=== PATIENT | male | born 1965 | race Caucasian/White ===

== ENCOUNTER 2023-11-28 10:41 | Emergency (ER) | payer OTHER, SELFPAY ==
--- NOTE | 2023-11-28 10:42 | ED.MUSCINJ ---
HPI-Injury
<Stella Scherer PA-C - Last Filed: 11/28/23 10:46>
General
Chief Complaint: Musculo-Skeletal Complaint
Time Seen by Provider: 11/28/23 11:14
<Yulissa Hansen PA-C - Last Filed: 11/30/23 01:30>
General
Source: patient
Exam Limitations: none
Nursing documentation reviewed up to this point in time: agreed with
History of Present Illness-Injury
Is this injury a work related problem?: No
Is pt an associate of [facility]?: No
Initial Injury comments:
Patient is a 58 year old male presenting with right hip pain for 3 days. Patient states that he was moving heavy objects on Monday at his home in [place] and believes that is when injury may have occurred. Patient states that on Monday he noticed
sharp pain in his right lower back/hip which radiates down his right leg into his right foot. Pain is definitely worse with certain movements. Patient was seen in an urgent care on Monday where he was prescribed a course of steroids and Flexeril.
He has been taking ibuprofen and Flexeril at home. He states Flexeril does not seem to be helping with his pain although does help him sleep at night.
Patient denies any fever, chills, numbness/tingling in lower extremities, bowel/bladder incontinence, saddle paresthesia. Patient denies any urinary symptoms.
ED Provider Triage
<Stella Scherer PA-C - Last Filed: 11/28/23 10:46>
-
Patient seen by provider in Triage?: Seen in Triage
Attestation: A medical screening examination has been initiated by a qualified medical provider. Based on the assessment performed at this time, it has been determined that an emergent medical condition may exist and the patient has been informed
that further medical evaluation and possible additional diagnostic testing may be needed.
HPI: 58yoM here with R hip pain x 2 days. Moved heavy objects two days prior symptoms starting. Radiates into foot. Sees a chiropractor regularly. Denies back pain currently.
GENERAL: Alert , in no apparent distress
EYE: No visual abnormalities.
NECK: Trachea midline
ENT: No visible abnormalities.
LUNGS: No acute respiratory distress
NEUROLOGICAL: Alert and oriented
SKIN: Skin intact. No visible changes.
MUSCULOSKELETAL: Moving extremities normally
PSYCH: Normal and appropriate interaction.
This is a medical evaluation conducted in person to initiate diagnostic evaluation and provide initial therapeutics. Please see further documentation by the treating clinician.
R hip x-rays ordered.
Past History
<Stella Scherer PA-C - Last Filed: 11/28/23 10:46>
Past History
ED Past Medical History: Other (Kidney stone)
ED Past Surgical History: Orthopedic
Social History
Tobacco: Non-smoker
Living: with family
Employment: Employed
Review of Systems
<Yulissa Hansen PA-C - Last Filed: 11/30/23 01:30>
Review of Systems
Allergies reviewed?: Yes
All Other Systems: ROS reviewed and negative except as documented in HPI and ROS
Phy Exam
<Yulissa Hansen PA-C - Last Filed: 11/30/23 01:30>
Physical Exam
Physical Exam:
Vitals: Mildly hypertensive. Afebrile
General: Patient is well appearing, no acute distress
Skin: Warm and dry, no rashes or lesions
Head: Normocephalic, atraumatic
Throat: Protecting airway
Neck: Normal ROM, no cervical spine tenderness
Cardiac: Regular rate
Pulm: No apparent respiratory distress
Abdomen: Soft and nontender. Nondistended. No CVA tenderness
Extremities: Positive right straight leg raise. Patient has no reproducible tenderness of right lower extremity. No obvious deformity or bony tenderness of right lower extremity. No pain with range of motion of right ankle, right knee or right hip.
Right lower extremity neurovascularly intact.
Neuro: Grossly intact. Strength 5 out of 5 in upper and lower extremities. Sensation fully well.
Psychiatric: Normal affect.
Injury Course
<Stella Scherer PA-C - Last Filed: 11/28/23 10:46>
Orders/Labs/Results
Orders:
Orders
11/28/23 10:45
Hip, Right 2-3 Views [CR Hip - RT w/wo Pel 2-3 Vw*] Urgent
Comment:
Reason For Exam: Pain
Include a pelvis x-ray?: Yes
11/28/23 12:22
Ketorolac [Toradol] 15 mg IM NOW STA
Lidocaine [Lidocaine 4% Patch] 1 patch TOPICAL NOW STA
Apply Lidocaine patch(s) to:: right lower back/hip
<Yulissa Hansen PA-C - Last Filed: 11/30/23 01:30>
Orders/Labs/Results
Orders:
Orders
11/28/23 10:45
Hip, Right 2-3 Views [CR Hip - RT w/wo Pel 2-3 Vw*] Urgent
Comment:
Reason For Exam: Pain
Include a pelvis x-ray?: Yes
11/28/23 12:22
Ketorolac [Toradol] 15 mg IM NOW STA
Lidocaine [Lidocaine 4% Patch] 1 patch TOPICAL NOW STA
Apply Lidocaine patch(s) to:: right lower back/hip
<Yulissa Hansen PA-C - Last Filed: 11/30/23 01:30>
MDM/Problems Addressed
Differential Diagnosis Includes:
Not limited to: Muscle strain, muscle spasm, nerve impingement, sciatica, IT band syndrome, hip arthritis, doubt hip fracture or dislocation
MDM/Problems Addressed:
Patient is a 58-year-old male with history as above presenting with right lower back pain/hip pain radiating to right foot. History obtained from patient. Patient is nontoxic, stable. Ambulatory with painful gait. Exam as above.
Independently reviewed imaging. No acute fracture or dislocation of right hip.
Differential diagnosis considered. Overall presentation is consistent with low risk back pain. Low suspicion for cauda equina syndrome, cord compression, epidural abscess, osteomyelitis, pyelonephritis, AAA, dissection, or other serious cause of
back pain. Symptoms and exam consistent with likely nerve impingement/sciatica. No infectious symptoms to suggest infectious etiology.
Patient was treated with pain medications with some improvement in symptoms. Patient is stable for outpatient management with pain control.
Discharged with instructions to obtain outpatient follow up of symptoms with strict return precautions if patient develops new or worsening symptoms. Case discussed with attending physician.
Chronic conditions affecting care:
N/A
Acute Exacerbation and/or Progression of Chronic Illness:
N/A
<Yulissa Hansen PA-C - Last Filed: 11/30/23 01:30>
*Radiology
Radiology exam reviewed: preliminary read by ED provider and radiology read reviewed
*Pulse Oximetry
Patient hypoxic: no
*EKG
Interpreted by ED Provider?: NA
*Hotel Office Manager Interpretation
Rate: Hotel Office Manager- N/A
*Critical Care Note
Total Time (30-74mins, 75-104mins- exclusive of procedures): Not Applicable
ED Attending Note
<Stella Scherer PA-C - Last Filed: 11/28/23 10:46>
-
Portions of this chart may have been created with voice recognition software.� Occasional wrong word or��sound alike� substitutions may have occurred due to the inherent limitations of voice recognition software.
Discharge Plan
Departure
Patient Disposition: Home (Routine Discharge)
Date of Disposition: 11/28/23
Time of Disposition: 13:23
Patient with high blood pressure during this ER visit?: Yes
Condition: Good
Covid-19: Not Applicable
Discharge Problem:
Right low back pain, Sciatica of right side
Instructions: Sciatica (DC), Radiculopathy of the neck and back (including sciatica), BLOOD PRESSURE
Prescriptions:
New
tramadol 50 mg tablet
50 mg PO Q8H PRN (Reason: Pain) Qty: 10 0RF
Referrals:
Don Briones DO [Family Provider] - Follow up in 2-3 days
Activity Restrictions/Additional Instructions:
RETURN TO THE EMERGENCY DEPARTMENT WITH ANY FEVERS, NUMBNESS/TINGLING IN LOWER LEGS, WEAKNESS IN LOWER LEGS, BOWEL/BLADDER INCONTINENCE, NUMBNESS IN GROIN, URINARY DYSFUNCTION, WORSENING IN CURRENT SYMPTOMS, OR ANY OTHER CONCERNS
-As discussed�your x-ray of your hip showed no acute fracture. I suspect your symptoms are related to a sciatic nerve impingement.
-You should complete steroid course as prescribed by urgent care. Take 600 mg of ibuprofen every 6-8 hours as needed for pain. You can take Tylenol in addition as needed. For severe pain�you can take tramadol. This may cause drowsiness you
should not take prior to driving. You should not take tramadol in addition to cyclobenzaprine. You can apply topical lidocaine patch to affected area as needed.
-Apply warm compresses as needed. Take it easy over the next few days.
-Follow-up with your primary care few days to ensure symptoms are improving/for further evaluation. If symptoms persist/worsen you may require further imaging
Monitor your symptoms closely return to the emergency department any acute worsening/new symptoms or any signs of infection
Interventions
Interventions:
*Risk Screen - Suicide Last Done: 11/28/23 10:43
*General Assessment Last Done: 11/28/23 10:43
*Neglect/Abuse Screening Last Done: 11/28/23 10:43
*Nursing Disposition Last Done: 11/28/23 13:52
ED-Musculoskeletal Assessment Last Done: 11/28/23 12:03
Discharge Date and Time
Discharge Date/Time: 11/28/23 13:53
Print Language: ARGENTINE
[2023-11-28 10:43] VITALS: BP 162/87
[2023-11-28] MEDS: TORADOL 15 MG IM (12:28)
[2023-11-28] MEDS: LIDOCAINE 4% PATCH 1 PATCH TOPICAL (12:28)
== END 2023-11-28 13:53 | disposition home or self-care (01) ==
LOC: EMR 10:41
PROVIDERS: EMERGENCY PHYSICIAN Emergency Medicine; FAMILY PHYSICIAN Family Medicine
DX: M54.41 Lumbago with sciatica, right side (principal)
CPT/HCPCS: 96372; 99284; 73502

== ENCOUNTER 2023-12-04 07:38 | Inpatient (IN) | payer OTHER, SELFPAY ==
[2023-12-02 18:56] VITALS: BP 173/99
--- NOTE | 2023-12-02 20:24 | ED.GENMED ---
History of Present Illness
<Colby Staples MD, Resident - Last Filed: 12/02/23 23:50>
General
Chief Complaint: Musculo-Skeletal Complaint
Source: patient, records and family
Time Seen by Provider: 12/02/23 19:47
History of Present Illness
History of Present Illness:
Jasen Flores, 58-year-old male, has had progressive right-sided low back pain for the past week. He was building his house in [place] on 11-24-23 when he started noticing discomfort in his right back. Developed a sharp pain in his right back which
radiated down towards his foot a couple of days later. He went to the urgent care where he was prescribed cyclobenzaprine and steroids, which did not help. He came to the emergency on 11-28-23, when a hip x-ray was unremarkable for any acute
changes. Discharged home with tramadol but that did not help. The back pain has since progressed and now has significant difficulty ambulating. Not able to walk beyond a few steps. Significant pain with standing, and he has discomfort even at rest.
He started experiencing numbness over the right anterolateral real with worsening pain and came back to the ED.
Denies weakness or loss of sensation in the right lower extremity. Denies incontinence, any other bowel or bladder issues. Denies fever, chills, night sweats, headaches or tiredness. Of note, he mentions in March this year he experienced a fall
down the stairs during which he injured his back as well; symptoms resolved within a few weeks.
Past History
<Colby Staples MD, Resident - Last Filed: 12/02/23 23:50>
Past History
ED Past Medical History: Other (Kidney stone)
ED Past Surgical History: Orthopedic
Social History
Tobacco: Non-smoker
Living: with family
Employment: Employed
Review of Systems
<Colby Staples MD, Resident - Last Filed: 12/02/23 23:50>
Review of Systems
Allergies reviewed?: Yes
All Other Systems: ROS reviewed and negative except as documented in HPI and ROS
Phy Exam
<Colby Staples MD, Resident - Last Filed: 12/02/23 23:50>
General Physical Exam
General Presentation: well appearing and no apparent distress
General Skin: warm and dry
General Habitus: normal
General Mental: alert
General Hydration: appears well hydrated
ENT Exam
ENT Exam: EOMI, pharynx normal, neck supple and normocephalic
Eye Exam
Eye Exam: PERRL, cornea clear and conjunctiva normal
Cardiovascular Exam
Cardiovascular Exam: regular rate/rhythm, no edema, no murmur and normal peripheral pulses
Pulmonary Exam
Pulmonary Exam: lungs clear, no respiratory distress, no rales, no crackles, no rhonchi, no stridor, no wheezing and no cough
Gastrointestinal Exam
Gastrointestinal Exam: normal bowel sounds, non tender, soft, no organomegaly, no pulsatile mass and non distended
Neurological Exam
Neurological Exam: alert, oriented x3, no motor deficits and speech normal
Musculoskeletal Exam
Musculoskeletal Exam: other (pain with active and passive motion at the right hip and back; positive right straight leg raise test)
Skin Exam
Skin Exam: normal color, warm/dry, no rash and no petechia
Psychiatric Exam
Psychiatric Exam: normal mood/affect
Course
<Colby Staples MD, Resident - Last Filed: 12/02/23 23:50>
Orders/Labs/Results
Orders:
Orders
12/02/23 20:18
CT Lumbar Spine W/ Iv Contrast Urgent
Comment:
Reason For Exam: right leg numbness; recent back injury
12/02/23 20:20
HYDROmorphone [Dilaudid] 0.5 mg IV NOW STA
12/02/23 20:50
Complete Blood Count/No Diff Urgent
Comprehensive Metabolic Panel Urgent
Creatine Phosphokinase Urgent
12/02/23 22:07
HYDROmorphone [Dilaudid] 0.5 mg IV NOW STA
12/02/23 23:28
Dexamethasone Sod Phosphate [Decadron] 10 mg IV NOW STA
Abnormal Lab Results
12/02/23
20:50
MCH 31.3 H pg
(27.0-31.0)
Plt Count 101 L 10^3/uL
(130-400)
Glucose 112 H mg/dl
(70-99)
Total Bilirubin 1.7 H mg/dl
(0.2-1.3)
12/02/23 20:50
12/02/23 20:50
Vital Signs
Initial and Last Documented VS:
Initial Vital Signs
Pulse Resp BP Pulse Ox
92 18 173/99 95
12/02/23 18:56 12/02/23 18:56 12/02/23 18:56 12/02/23 18:56
Last Documented Vital Signs
Temp Pulse Resp BP Pulse Ox
98.9 F 79 16 151/96 98
12/02/23 19:00 12/02/23 22:29 12/02/23 22:29 12/02/23 22:29 12/02/23 22:29
<Herson Lewis, DO - Last Filed: 12/02/23 21:17>
Orders/Labs/Results
Orders:
Orders
12/02/23 20:18
CT Lumbar Spine W/ Iv Contrast Urgent
Comment:
Reason For Exam: right leg numbness; recent back injury
12/02/23 20:20
HYDROmorphone [Dilaudid] 0.5 mg IV NOW STA
12/02/23 20:50
Complete Blood Count/No Diff Urgent
Comprehensive Metabolic Panel Urgent
Creatine Phosphokinase Urgent
12/02/23 22:07
HYDROmorphone [Dilaudid] 0.5 mg IV NOW STA
12/02/23 23:28
Dexamethasone Sod Phosphate [Decadron] 10 mg IV NOW STA
Abnormal Lab Results
12/02/23
20:50
MCH 31.3 H pg
(27.0-31.0)
Plt Count 101 L 10^3/uL
(130-400)
Glucose 112 H mg/dl
(70-99)
Total Bilirubin 1.7 H mg/dl
(0.2-1.3)
12/02/23 20:50
12/02/23 20:50
Vital Signs
Initial and Last Documented VS:
Initial Vital Signs
Pulse Resp BP Pulse Ox
92 18 173/99 95
12/02/23 18:56 12/02/23 18:56 12/02/23 18:56 12/02/23 18:56
Last Documented Vital Signs
Temp Pulse Resp BP Pulse Ox
98.9 F 79 16 151/96 98
12/02/23 19:00 12/02/23 22:29 12/02/23 22:29 12/02/23 22:29 12/02/23 22:29
<Colby Staples MD, Resident - Last Filed: 12/02/23 23:50>
MDM/Problems Addressed
Differential Diagnosis Includes:
radiculopathy; discitis; spinal abscess; malignancy
MDM/Problems Addressed:
Progressive back pain, now unable to ambulate without help and numbness over the anterolateral right leg. Will check CT LS. Would benefit from definitive evaluation with MR.
CT consistent with multilevel degenerative disease. Unable to rule out spinal stenosis and appropriately assess degree of foraminal stenosis without MR. Patient with considerable difficulty ambulating without help due to acute pain. Persistent
numbness. Recommending admission and inpatient MR.
<Colby Staples MD, Resident - Last Filed: 12/02/23 23:50>
*Critical Care Note
Total Time (30-74mins, 75-104mins- exclusive of procedures): Not Applicable
ED Attending Note
<Colby Staples MD, Resident - Last Filed: 12/02/23 23:50>
-
Portions of this chart may have been created with voice recognition software.� Occasional wrong word or��sound alike� substitutions may have occurred due to the inherent limitations of voice recognition software.
<Herson Lewis, DO - Last Filed: 12/02/23 21:17>
ED Attending Note
Patient seen and examined by attending physician: Yes
I performed a history and physical exam of patient and discussed management with resident, I reviewed resident's note and agree with documented findings and plan of care.: Yes
ED Attending Note:
I have seen and evaluated the patient with a [id number] encounter. I have spoken to the resident and involved in the medical history, the physical exam, medical decision making.
Evaluation and management service: agree unless noted differently below.
Results interpretation: agree unless noted differently below.
Focused HPI: 58-year-old male presenting with worsening back pain. Patient was recently seen and diagnosed with likely sciatica. Patient is now developing numbness in his right real and worsening back pain. Denies trauma. Patient denies trouble
defecating or urinating. He denies numbness in his rectum
Physical exam: At the time of my evaluation, patient has already received pain medicine and feeling better. However, he is extremely limited range of motion of his right leg secondary to pain. There is mild sensory deficit to his right distal leg
but distal muscle strength and vasculature intact. Mild back pain noted on the right
Medical Decision Making: Although his symptoms are still consistent with likely sciatica, will obtain CT and ultimately admit for MRI given his difficulty with ambulation.
Discharge Plan
Departure
Patient Disposition: Admit
Date of Disposition: 12/02/23
Time of Disposition: 23:36
Presentation/result/management discussed w/ accepting MD/DO: Hospitalist
Discharge Problem:
Acute right-sided back pain with sciatica, Ambulatory dysfunction
Prescriptions:
No Action
tramadol 50 mg tablet
50 mg PO Q8H PRN (Reason: Pain) Qty: 10 0RF
Referrals:
Don Briones DO [Family Provider] -
Interventions
Interventions:
*Risk Screen - Suicide Last Done: 12/02/23 19:00
*General Assessment Last Done: 12/02/23 18:56
*Neglect/Abuse Screening Last Done: 12/02/23 20:09
ED- Fall Risk Assessment Last Done: 12/02/23 20:09
*ED COVID-19 Vaccine History Last Done: 12/02/23 18:56
ED-Musculoskeletal Assessment Last Done: 12/02/23 20:09
Discharge Date and Time
Print Language: MACANESE
[2023-12-02] MEDS: DILAUDID 0.5 MG IV ×2 (20:51→22:22)
[2023-12-02 21:08] LABS: Hematocrit 43.2 % (39.0-52.0); Hemoglobin 15.8 g/dL (13.0-18.0); Mean Corp Hgb Conc. 36.6 g/dL (33.0-37.0); Mean Corpuscular Hgb 31.3 pg (27.0-31.0); Mean Corpuscular Volume 85.5 fL (80.0-94.0); Mean Platelet Volume 8.8 fL (7.4-10.4); Platelet Count 101 10^3/uL (130-400); Red Blood Cell Count 5.05 10^6/uL (4.70-6.10); Red Cell Dist. Width 13.6 % (11.5-14.5); White Blood Cell Count 8.2 10^3/uL (4.8-10.8)
[2023-12-02 21:17] VITALS: BP 152/79
[2023-12-02 21:21] VITALS: BP 152/79
[2023-12-02 21:22] LABS: ALT (SGPT) 29 U/L (0-50); AST (SGOT) 35 U/L (17-59); Albumin 4.5 g/dl (3.5-5.0); Alkaline Phosphatase 43 U/L (38-126); Blood Urea Nitrogen 16 mg/dl (9-20); Calcium 9.6 mg/dl (8.4-10.2); Carbon Dioxide 24 mmol/L (22-30); Chloride 102 mmol/L (98-107); Creatine Phosphokinase 166 U/L (55-170); Glucose 112 mg/dl (70-99); Potassium 3.8 mmol/L (3.5-5.1); Sodium 137 mmol/L (135-145); Total Bilirubin 1.7 mg/dl (0.2-1.3); Total Protein 6.9 g/dl (6.3-8.2); eGFR > 60.00
[2023-12-02 22:21] VITALS: BP 151/96
[2023-12-02 22:29] VITALS: BP 151/96
[2023-12-02 23:00] VITALS: BP 137/84
[2023-12-02] MEDS: DECADRON 10 MG IV (23:53)
[2023-12-03] VITALS (7 sets, daily range): BP systolic 117–152; BP diastolic 73–93; BMI 37.3; BMI 36.8
--- NOTE | 2023-12-03 00:22 | HPS.HSE ---
Family Physician
-
Family Physician: Don Briones DO
Chief Complaint
-
RLE Radicular Pain
History of Present Illness
Patient is a 58y M with no significant PMH who presents to ED complaining of R buttock and LE pain x 1 week. Patient notes that symptoms initially started on Monday of last week. He states that he has been moving boxes / doing other activities
related to moving. He developed sudden onset of sharp pain in the R buttock on Monday evening. The following morning he noted tingling / shooting sensation across the right buttocks and into the R thigh and medial R calf. His pain was worse with
standing / weight bearing. He was seen by his usual chiropractor who recommended he be evaluated further. He was seen at an Urgent Care and prescribed Medrol dose pack and Flexeril - which he completed with no improvement in his pain. He was seen
here at the ED on 11/27 with similar symptoms. He was prescribed tramadol and discharged to home.
Patient notes no change in his symptoms despite these therapies. He continues to have shooting pain down the R leg - stopping just above the ankle.
He has difficulty standing upright or walking due to his symptoms.
Patient presented to the ED again this evening for further evaluation.
Medical History
Past Medical History
Past Medical History: Reports None
Past Surgical History: Reports Other
Additional Past Surgical History:
Knee Arthroscopy
Rotator Cuff Repair
Right Elbow Surgery
IDA
Social History
Tobacco: Non-smoker
Alcohol: Occasional
Drug: None
Personal:
Living: With Family
Family History
Family History: Other (Father: Stomach Cancer Mother: Breast Cancer)
Allergies / Home Medications
Allergies reflects when Allergies were last updated in [employer].
Home Medications with original date entered in [employer]
Allergy/Medication List:
Allergies
Allergy/AdvReac Type Severity Reaction Status Date / Time
NKA - No Known Allergies Allergy Unknown Uncoded 11/28/23 10:43
Home Medications
No Meds [No Current Medications] 12/03/23
Review of Systems
-
History Source: Patient
A 12 point ROS was completed and negative except as noted: Yes
Constitutional: Denies Fever or Chills
Respiratory: Denies Cough or Trouble Breathing
Cardiac: Denies Chest Pain or Palpitations
Abdomen/GI: Denies Abdominal Pain, Nausea, Vomiting or Diarrhea
: Denies Dysuria or Frequency
Musculoskeletal: Denies Joint Pain or Edema
Neurological: Reports Other (RLE Radicular Pain)
Psych: Denies Depression or Anxiety
Physical Exam
Vital Signs
Vital Signs
Temp Pulse Resp BP Pulse Ox
98.9 F 79 16 151/96 98
12/02/23 19:00 12/02/23 22:29 12/02/23 22:29 12/02/23 22:29 12/02/23 22:29
Physical Exam
General: Other (58y M in mild distress due to pain.)
HEENT: Moist mucous membranes
Respiratory: Clear; No Wheezes, Rales or Rhonchi
Cardiac: S1/S2 and Regular Rhythm; No Murmur
GI: Soft, Non Tender, Non Distended and Normal Bowel Sounds
Musculoskeletal: No Clubbing, No Cyanosis, No Edema and Other (Pos SLR on the R at < 10 degrees. )
Neuro: AO x 3
Laboratory Results
-
12/02/23 20:50
12/02/23 20:50
Laboratory Results
Total Bilirubin 1.7 mg/dl (0.2-1.3) H 12/02/23 20:50
AST 35 U/L (17-59) 12/02/23 20:50
ALT 29 U/L (0-50) 12/02/23 20:50
Alkaline Phosphatase 43 U/L (38-126) 12/02/23 20:50
Impression/Plan
-
A/P: Patient is a 58y M with no significant PMH who presents to ED complaining of RLE radicular pain for about one week.
RLE Radiculopathy
DDD
- Observe overnight for further evaluation and treatment.
- Symptoms mostly c/w L4 radiculopathy based on distribution.
- CT done in the ED today shows significant foraminal stenoses at L3-4, L4-5 and L5-S1 levels - most severe on the R at L4-5.
- MRI in the AM for further evaluation.
- IR evaluation for possible LESI.
- Continue supportive care for now.
- PT / OT evaluations in the AM.
DVT Prophylaxis: SCDs
Code Status: Full
[2023-12-03] MEDS: DILAUDID 0.5 MG IV ×2 (01:58→10:17)
[2023-12-03] MEDS: NEURONTIN 100 MG PO (10:13)
[2023-12-03] MEDS: TYLENOL 1000 MG PO ×3 (10:13→21:21)
--- NOTE | 2023-12-03 11:11 | W.PN.HOSP.TC ---
Today's Communication/Plan
-
Follow-up MRI
Increased pain regimen
Consider IR intervention
Assessment / Plan
Assessment / Plan
#Acute RLE radiculitis
-Significant pain down to the right lateral ankle with associated paresthesias of the right lateral calf
-MRI of the lumbosacral spine was ordered, scan was done though formal read is pending
-Currently on analgesic regimen with Dilaudid dosed by pain level, gabapentin TID
-Was also given 1 dose of steroid on arrival
-No signs of infection, low suspicion for malignancy
Plan
-Resume IV Decadron 2 mg every 8 hours
-Continue with hydromorphone as needed for pain
-Increase gabapentin to 200 mg 3 times daily, monitor for sedation
-Follow-up MRI, consider IR for LESI
-PT/OT
DVT prophylaxis: SCDs
Diet: Regular
CODE STATUS: Full
Anticipated Discharge: 24 - 48 hours
Subjective/Interval History
-
Date of Service: December 03, 2023
Seen and examined at the bedside. No acute events reported since admission. AFVSS currently
He states he still has significant amount of pain. Worse with movement of his right lower extremity. Describes paresthesias to the right lateral calf
Denies chest pain, dyspnea, fevers or chills, GI issues, urinary issues, bleeding or bruising.
Objective Data
-
Vital Signs:
Vital Signs
Temp Pulse Resp BP Pulse Ox
98.3 F 78 18 144/79 97
12/03/23 07:00 12/03/23 07:00 12/03/23 07:00 12/03/23 07:00 12/03/23 07:00
I&O
12/02/23 12/03/23 12/04/23
06:59 06:59 06:59
Intake Total 120 / 120
Balance 120 / 120
Review of Systems
-
History Source: Patient
All other systems: Reviewed and negative
Physical Exam
-
General: Well Nourished, Pain and Obese
HEENT: Normocephalic, Atraumatic, Moist Mucous Membranes and Anicteric
Respiratory: Clear to Auscultation and Non Labored Respirations
Cardiac: Regular Rhythm and S1/S2; Negative Murmur, Rub or Gallop
GI: Soft, Nontender, Nondistended and Normal Bowel Sounds
Musculoskeletal: No Clubbing, No Cyanosis and No Edema
Skin: Warm and Dry; Negative Rash
Neuro: AO x 3 and Central Nerve's Intact; Negative No Motor Deficits (4/5 MMS to distal RLE) or No Sensory Deficits (Reduced gross sensation to right lateral calf)
Psych: Calm
Data Reviewed
-
MRI: Discussed with Patient
Labs: Labs Reviewed by me and Discussed with Patient
[2023-12-03] MEDS: DECADRON 2 MG IV ×2 (16:08→23:19)
[2023-12-03] MEDS: NEURONTIN 200 MG PO ×2 (16:08→21:21)
[2023-12-03] MEDS: DILAUDID 1 MG IV (16:22)
--- NOTE | 2023-12-03 16:31 | CM ---
met with patient and at bedside.patient lives with his in [facility] with [address],his bed and bath is on the first level,he amb i and is I with his adl.
PCP:dr malina Briones PHARMACY: [facility]
PMH: kidney stone,ortho surgery
Patient is adm with acute rle radiculiis ,ct scan,mri,iv decadron,iv dilaudid,inc gabapentin,consider ir for lumar epidurl steroid injection.Patient had vacation to [place] planned and had to cancel it. Plan: home with no needs.
[2023-12-04] MEDS: DILAUDID 1 MG IV ×4 (00:49→23:11)
[2023-12-04 07:26] VITALS: BP 155/87
[2023-12-04] MEDS: NEURONTIN 200 MG PO (08:25)
[2023-12-04] MEDS: TYLENOL 1000 MG PO ×3 (08:25→21:58)
[2023-12-04] MEDS: DECADRON 2 MG IV ×3 (08:25→23:13)
[2023-12-04 10:51] VITALS: BP 142/83; BP_SYST 76
[2023-12-04 11:31] VITALS: BP 127/76; BP_SYST 74
--- NOTE | 2023-12-04 12:31 | W.PN.HOSP.TC ---
Today's Communication/Plan
-
Monitor vital signs see plan
IR for possible epidural
Add oxycodone
Add PPI
Continue with steroids
Assessment / Plan
Assessment / Plan
#Acute RLE radiculopathy
-Significant pain down to the right lateral ankle with associated paresthesias of the right lateral calf
-MRI of the lumbosacral spine was ordered, scan was done though formal read is pending
-Currently on analgesic regimen with Dilaudid dosed by pain level, gabapentin TID
-Was also given 1 dose of steroid on arrival
-No signs of infection, low suspicion for malignancy
Plan
-vw IV Decadron 2 mg every 8 hours
-Continue with hydromorphone as needed for pain
-Increase gabapentin to 300 mg 3 times daily, monitor for sedation. add PO oxycodone. tylenol standing
MRI noted; IR for possible epidural
-PT/OT
DVT prophylaxis: SCDs
Diet: Regular
CODE STATUS: Full
General: Well Nourished, Pain and Obese
HEENT: Normocephalic, Atraumatic, Moist Mucous Membranes and Anicteric
Respiratory: Clear to Auscultation and Non Labored Respirations
Cardiac: Regular Rhythm and S1/S2; Negative Murmur, Rub or Gallop
GI: Soft, Nontender, Nondistended and Normal Bowel Sounds
Musculoskeletal: No Clubbing, No Cyanosis and No Edema
Skin: Warm and Dry; Negative Rash
Neuro: AO x 3 and Central Nerve's Intact; Negative No Motor Deficits (4/5 MMS to distal RLE) or No Sensory Deficits (Reduced gross sensation to right lateral calf)
Psych: Calm
Anticipated Discharge: Within 24 hours
Subjective/Interval History
-
Date of Service: December 04, 2023
has pain
Objective Data
-
Labs:
Laboratory Results
12/04/23
08:47
PT 15.0 H
INR 1.20
Vital Signs:
Vital Signs
Temp Pulse Resp BP Pulse Ox
98.0 F 74 15 127/76 98
12/04/23 10:51 12/04/23 11:31 12/04/23 11:31 12/04/23 11:31 12/04/23 11:31
I&O
12/03/23 12/04/23 12/05/23
06:59 06:59 06:59
Intake Total 120 / 120 960 / 960
Balance 120 / 120 960 / 960
[2023-12-04] MEDS: NEURONTIN 100 MG PO (12:47)
[2023-12-04] MEDS: PROTONIX PO (13:48)
[2023-12-04] MEDS: ROXICODONE 5 MG PO (14:18)
--- NOTE | 2023-12-04 14:59 | CON.NS ---
Consultation
-
Date/Time Consultation Performed: 12/04/2023; 15:00
Performing Provider: Rosanne
Chief Complaint
History of Present Illness
This is a neurosurgical consultation on a 58-year-old gentleman who presented to the emergency room on 12/03/2023 with complaints of severe right buttock, and right lower extremity pain for the past week. Symptoms were incited by moving boxes and
heavy lifting. He developed sudden onset of sharp pain in the right buttock, with associated numbness and tingling in the right buttock, and into the right thigh and medial calf. He was seen by his chiropractor, who recommended further evaluation.
He then was seen by urgent care, and prescribed a Medrol Dosepak, muscle relaxants. He presents to the emergency room on 11/28/2023 with similar symptoms. He has had no change in his symptoms despite conservative management, and therefore
presented with persistent pain, difficulty standing upright, or walking. He was admitted for pain control, and underwent an MRI of the lumbar spine.MRI of the lumbar spine does demonstrate right-sided L4-L5 disc herniation. Neurosurgery consulted
for further evaluation.
He denies any bowel or bladder changes. During this hospitalization, he has been placed on an analgesic regimen with Dilaudid, gabapentin, and was given 1 dose of steroid on arrival. He was continued on dexamethasone 2 mg every 8 hours.
Gabapentin was increased up to 200 mg 3 times a day. IR has been consulted for possible epidural steroid injection.
Patient seen examined. He reports that it is too soon to tell whether the epidurals or injection has had significant effect. He denies any weakness or floppy foot, or dropfoot of his right leg.
Review of Systems
-
A 10 point review of systems including constitutional, ENT, cardiovascular, respiratory, GI, , endocrinologic, hematologic, neurologic, musculoskeletal was performed, and was negative, except for stated in HPI.
Medication and Allergies
Home Medications
Home Medications
�Medication �Instructions �Recorded
No Meds [No Current Medications] 12/03/23
Allergies
Allergies
Allergy/AdvReac Type Severity Reaction Status Date / Time
NKA - No Known Allergies Allergy Unknown Uncoded 11/28/23 10:43
Physical Exam
-
Exam:
Awake, alert, no apparent distress.
Head is normocephalic atraumatic
Neck is supple
Breathing nonlabored
Cardiac: Regular rate and rhythm
Abdomen nondistended nontender
Extremities are warm
Cranial nerves II to XII are grossly intact
Speech is fluent, comprehension is intact, repetition is normal.
Motor: 5/5 strength bilaterally in upper and lower extremities, and all muscle groups.
Diminished sensation to light touch over right lateral calf, and right lateral foot.
MRI of the lumbar spine performed on 12/03/2023 demonstrates right-sided foraminal/far lateral Disc herniation which causes right foraminal narrowing/impingement. no obvious evidence of central canal stenosis is seen.
Problems
-
Problem Status Onset Code
Ambulatory dysfunction R26.2
Acute right-sided back pain with sciatica M54.41
Assessment / Plan
-
This is a 58-year-old gentleman who presents with acute right lower extremity radiculopathy, secondary to a right L4-L5 far lateral disc herniation.
Recommend appropriate pain control.
Agree with dexamethasone 2 mg every 8 hours, can transition to Medrol Dosepak.
Increase gabapentin to 300 mg 3 times daily as tolerated.
Muscle relaxants as needed.
PT OT.
If patient fails to respond to lumbar epidural steroid injection, can follow-up in the office as an outpatient, which time we can discuss microdiscectomy.
Discussed with patient, and he is in agreement with plan. Patient provided my business card.
Patient can go home per my specialty: Tomorrow
[2023-12-04] MEDS: NEURONTIN 300 MG PO ×2 (15:03→21:58)
[2023-12-04 15:38] VITALS: BP 141/85
--- NOTE | 2023-12-04 16:58 | CM ---
Spoke with pt and in room .
Explained he is now inpatient status.
Offered VN he declined need at dc.
PT eval unable due to ts pain.
PLAN Home no needs
[2023-12-04 22:54] VITALS: BP 124/65
[2023-12-05] MEDS: DILAUDID 1 MG IV ×3 (05:08→22:24)
[2023-12-05 05:56] LABS: % Basophils 0.2 % (0-2); % Immature Granulocytes 0.4 % (0-0.5); % Lymphocytes 15.9 % (20.5-51.1); % Monocytes 5.1 % (1.7-9.3); % Neutrophils 78.4 % (42.2-75.2); Absolute Immature Granulocytes 0.1 10^3/uL (0-0.05); Absolute Lymphocytes 1.8 10^3/uL (1.2-3.4); Absolute Monocytes 0.6 10^3/uL (0.1-0.6); Hematocrit 44.5 % (39.0-52.0); Hemoglobin 16.4 g/dL (13.0-18.0); Mean Corp Hgb Conc. 36.9 g/dL (33.0-37.0); Mean Corpuscular Hgb 31.4 pg (27.0-31.0); Mean Corpuscular Volume 85.2 fL (80.0-94.0); Nucleated Red Blood Cells % 0 % (-); Platelet Count 92 10^3/uL (130-400); Red Blood Cell Count 5.22 10^6/uL (4.70-6.10); Red Cell Dist. Width 13.6 % (11.5-14.5); White Blood Cell Count 11.5 10^3/uL (4.8-10.8)
[2023-12-05 06:03] LABS: Blood Urea Nitrogen 17 mg/dl (9-20); Calcium 9.9 mg/dl (8.4-10.2); Carbon Dioxide 21 mmol/L (22-30); Chloride 103 mmol/L (98-107); Estimated Creatinine Clearance 117 ml/min; Glucose 129 mg/dl (70-99); Potassium 4.5 mmol/L (3.5-5.1); Sodium 137 mmol/L (135-145); eGFR > 60.00
[2023-12-05] MEDS: PROTONIX 40 MG PO (08:11)
[2023-12-05] MEDS: TYLENOL 1000 MG PO ×3 (08:11→22:24)
[2023-12-05] MEDS: DECADRON 2 MG IV ×3 (08:11→23:15)
[2023-12-05] MEDS: NEURONTIN 300 MG PO ×3 (08:11→22:24)
--- NOTE | 2023-12-05 11:44 | W.PN.HOSP.TC ---
Today's Communication/Plan
-
Monitor vital signs see plan
Pain control
PT/OT
Hopeful DC tomorrow
Assessment / Plan
Assessment / Plan
#Acute RLE radiculopathy
-Significant pain down to the right lateral ankle with associated paresthesias of the right lateral calf
-MRI of the lumbosacral spine was ordered, scan was done though formal read is pending
-Currently on analgesic regimen with Dilaudid dosed by pain level, gabapentin TID
-Was also given 1 dose of steroid on arrival
-No signs of infection, low suspicion for malignancy
Plan
-vw IV Decadron 2 mg every 8 hours
-Continue with hydromorphone as needed for pain
-Increase gabapentin to 300 mg 3 times daily, monitor for sedation. added PO oxycodone. tylenol standing
MRI noted; s/p IR epidural 12/03
-PT/OT
pain control, still requiring IV Dilaudid. Hopeful DC tomorrow
Leukocytosis likely secondary to steroids
Patient seen by neurosurgery who recommended patient to follow-up with them outpatient
DVT prophylaxis: SCDs
Diet: Regular
CODE STATUS: Full
General: Well Nourished, Pain and Obese
HEENT: Normocephalic, Atraumatic, Moist Mucous Membranes and Anicteric
Respiratory: Clear to Auscultation and Non Labored Respirations
Cardiac: Regular Rhythm and S1/S2; Negative Murmur, Rub or Gallop
GI: Soft, Nontender, Nondistended and Normal Bowel Sounds
Musculoskeletal: No Clubbing, No Cyanosis and No Edema
Skin: Warm and Dry; Negative Rash
Neuro: AO x 3 and Central Nerve's Intact; Negative No Motor Deficits (4/5 MMS to distal RLE) or No Sensory Deficits (Reduced gross sensation to right lateral calf)
Psych: Calm
Anticipated Discharge: Within 24 hours
Subjective/Interval History
-
Date of Service: December 05, 2023
still has pain
Objective Data
-
Labs:
Laboratory Results
12/05/23
05:16
WBC 11.5 H
Hgb 16.4
Hct 44.5
Plt Count 92 L
Sodium 137
Potassium 4.5
Chloride 103
Carbon Dioxide 21 L
BUN 17
Creatinine 0.9
Glucose 129 H
Calcium 9.9
Vital Signs:
Vital Signs
Temp Pulse Resp BP Pulse Ox
98 F 81 18 124/65 99
12/04/23 22:54 12/04/23 22:54 12/04/23 22:54 12/04/23 22:54 12/04/23 22:54
I&O
12/04/23 12/05/23 12/06/23
06:59 06:59 06:59
Intake Total 960 / 960 1140 / 1140
Balance 960 / 960 1140 / 1140
[2023-12-05] MEDS: ROXICODONE 5 MG PO ×2 (14:27→20:25)
[2023-12-05 15:34] VITALS: BP 149/77
--- NOTE | 2023-12-05 16:26 | CM ---
Spoke with pt at bedside.
Pt verbalized better pain control with meds.
He said he will be transferred to oral pain meds.
He said his will drive him home.
He requested a walker PT notified .Requested a paper script for walker from
Pt said he will set up out pt PT.
PLAN: Home no needs
[2023-12-05] MEDS: MIRALAX 17 GRAMS PO (17:23)
[2023-12-05 23:50] VITALS: BP 125/71
[2023-12-06 05:58] LABS: Blood Urea Nitrogen 21 mg/dl (9-20); Calcium 9.4 mg/dl (8.4-10.2); Carbon Dioxide 24 mmol/L (22-30); Chloride 101 mmol/L (98-107); Estimated Creatinine Clearance 105 ml/min; Glucose 115 mg/dl (70-99); Potassium 4.5 mmol/L (3.5-5.1); Sodium 139 mmol/L (135-145); eGFR > 60.00
[2023-12-06 06:09] LABS: % Basophils 0.1 % (0-2); % Immature Granulocytes 0.3 % (0-0.5); % Lymphocytes 18.4 % (20.5-51.1); % Monocytes 6.3 % (1.7-9.3); % Neutrophils 74.9 % (42.2-75.2); Absolute Lymphocytes 1.7 10^3/uL (1.2-3.4); Absolute Monocytes 0.6 10^3/uL (0.1-0.6); Absolute Neutrophils 6.8 10^3/uL (1.4-6.5); Hematocrit 43.8 % (39.0-52.0); Mean Corp Hgb Conc. 36.5 g/dL (33.0-37.0); Mean Corpuscular Hgb 31.6 pg (27.0-31.0); Mean Corpuscular Volume 86.6 fL (80.0-94.0); Mean Platelet Volume 8.7 fL (7.4-10.4); Nucleated Red Blood Cells % 0 % (-); Platelet Count 81 10^3/uL (130-400); Red Blood Cell Count 5.06 10^6/uL (4.70-6.10); Red Cell Dist. Width 13.6 % (11.5-14.5); White Blood Cell Count 9.1 10^3/uL (4.8-10.8)
[2023-12-06] MEDS: ROXICODONE 5 MG PO ×2 (06:23→13:15)
[2023-12-06 07:21] VITALS: BP 125/90
[2023-12-06] MEDS: MIRALAX 17 GRAMS PO (08:15)
[2023-12-06] MEDS: TYLENOL 1000 MG PO (08:15)
[2023-12-06] MEDS: NEURONTIN 300 MG PO (08:15)
[2023-12-06] MEDS: PROTONIX 40 MG PO (08:15)
[2023-12-06] MEDS: DECADRON 2 MG IV (08:16)
--- NOTE | 2023-12-06 11:24 | W.PN.HOSP.TC ---
Today's Communication/Plan
-
monitor vitals
see plan
dc today
pain control
Discussed with spouse at bedside
Time of discharge 38 minutes
Assessment / Plan
Assessment / Plan
#Acute RLE radiculopathy
-Significant pain down to the right lateral ankle with associated paresthesias of the right lateral calf
-MRI of the lumbosacral spine was ordered, scan was done though formal read is pending
-Currently on analgesic regimen with Dilaudid dosed by pain level, gabapentin TID
-Was also given 1 dose of steroid on arrival
-No signs of infection, low suspicion for malignancy
Plan
-vw IV Decadron 2 mg every 8 hours; dc on short course of steroids
-Continue with hydromorphone as needed for pain
-Increase gabapentin to 300 mg 3 times daily, monitor for sedation. added PO oxycodone. tylenol standing
MRI noted; s/p IR epidural 12/03
-PT/OT
pain control, dilaudid; oxycodone; DC today
Leukocytosis likely secondary to steroids
Patient seen by neurosurgery who recommended patient to follow-up with them outpatient
DVT prophylaxis: SCDs
Diet: Regular
CODE STATUS: Full
General: Well Nourished, Pain and Obese
HEENT: Normocephalic, Atraumatic, Moist Mucous Membranes and Anicteric
Respiratory: Clear to Auscultation and Non Labored Respirations
Cardiac: Regular Rhythm and S1/S2; Negative Murmur, Rub or Gallop
GI: Soft, Nontender, Nondistended and Normal Bowel Sounds
Musculoskeletal: No Clubbing, No Cyanosis and No Edema
Skin: Warm and Dry; Negative Rash
Neuro: AO x 3 and Central Nerve's Intact
Psych: Calm
Anticipated Discharge: Today
Subjective/Interval History
-
Date of Service: December 06, 2023
feeling better
Objective Data
-
Labs:
Laboratory Results
12/06/23
05:20
WBC 9.1
Hgb 16.0
Hct 43.8
Plt Count 81 L
Sodium 139
Potassium 4.5
Chloride 101
Carbon Dioxide 24
BUN 21 H
Creatinine 1.0
Glucose 115 H
Calcium 9.4
Vital Signs:
Vital Signs
Temp Pulse Resp BP Pulse Ox
97.5 F 75 18 125/90 98
12/06/23 07:21 12/06/23 07:21 12/06/23 07:21 12/06/23 07:21 12/06/23 07:21
I&O
12/05/23 12/06/23 12/07/23
06:59 06:59 06:59
Intake Total 1140 / 1140 1440 / 1440
Balance 1140 / 1140 1440 / 1440
--- NOTE | 2023-12-06 11:31 | W.DCSUMMARY ---
Discharge Summary
Discharge Data
Date of Admission: 12/04/23
Date of Discharge: 12/06/23
-
Pending Results: No
Hospital Course
58-year-old male with past medical history of back pain came to the hospital with intractable back pain known to have acute right lower extremity radiculopathy secondary to lumbar spine disc herniation. Patient was also seen by neurosurgery
recommended patient to follow-up with them outpatient. Patient did card IR guided epidural injection on 12/04/2023 which improved his symptoms. He was also started on pain medications. Patient was also evaluated by physical therapy while he was
hospitalized. Once patient symptoms continue to improve, he was then discharged home with instructions to follow-up with all his physicians outpatient.
Discharge Plan
-
Patient Disposition: Home (Routine Discharge)
Discharge Diagnosis/Procedures: Acute right lower extremity radiculopathy secondary to right L4-L5 lateral disc herniation
Condition: Fair
Diet: As tolerated
Activity: As tolerated
Driving Restrictions: As prior to admission
Bathing Restrictions: None
Referrals:
Don Briones DO [Family Provider] - in less than 1 week
Janet Lay MD [Active] -
Prescriptions:
New
polyethylene glycol 3350 [HealthyLax] 17 gram Powder In Packet
17 g PO DAILY Qty: 0 0RF
acetaminophen [Tylenol Extra Strength] 500 mg Tablet
1,000 mg PO TID Qty: 0 0RF
pantoprazole 40 mg Tablet,Delayed Release (Dr/Ec)
40 mg PO DAILY Qty: 30 0RF
gabapentin 300 mg Capsule
300 mg PO TID Qty: 90 0RF
oxycodone 5 mg Tablet
5 mg PO Q4HPRN PRN (Reason: moderate pain) Qty: 20 0RF
methylprednisolone [Medrol (Jc)] 4 mg tablets,dose pack
See Rx Instructions .ROUTE .COMPLEX Qty: 21 0RF
Rx Instructions:
for 6 days
Discharge Orders:
Discharge Patient (As Directed); Ordered 12/06/23
Ordered By: Hermes Yancey
Discharge Date and Time
Discharge Date/Time: 12/06/23 16:17
Print Language: GHANAIAN
[2023-12-06 15:09] VITALS: BP 145/73
--- NOTE | 2023-12-06 15:31 | CM ---
entered order for discharge.
He said his will drive him home.
He requested a walker PT notified .PT issued walker .
Pt said he will set up out pt PT.
PLAN: Home no needs
== END 2023-12-06 16:17 | disposition home or self-care (01) | DRG 552 ==
LOC: 3 WEST ACU 07:38
PROVIDERS: Radiology Vascular & Interventional Radiology; Student in an Organized Health Care Education/Training Program; ADMITTING PHYSICIAN Hospitalist; ATTENDING PHYSICIAN Internal Medicine; EMERGENCY PHYSICIAN Student in an Organized Health Care Education/Training Program; FAMILY PHYSICIAN Family Medicine; OTHER PHYSICIAN Neurological Surgery
PROC: 3E0S33Z Introduction of Anti-inflammatory into Epidural Space, Percutaneous Approach (ICD-10-PCS; 2023-12-04)
DX: M51.16 Intervertebral disc disorders with radiculopathy, lumbar region (principal); M48.061 Spinal stenosis, lumbar region without neurogenic claudication; R26.2 Difficulty in walking, not elsewhere classified
CPT/HCPCS: 62323; 72132; 72148; 80048; 80053; 82550; 85025; 85027; 85610; 96374; 96375; 96376; 97116; 97162; 97166; 97530; 97535; 99285

== ENCOUNTER 2025-01-24 06:15 | Day surgery (SDC) | payer BC, SELFPAY ==
[2025-01-17 13:39] VITALS: BMI 41.5
[2025-01-17 14:28] LABS: ALT (SGPT) 47 U/L (0-50); AST (SGOT) 50 U/L (17-59); Albumin 5.1 g/dl (3.5-5.0); Alkaline Phosphatase 48 U/L (38-126); Blood Urea Nitrogen 16 mg/dl (9-20); Calcium 10.1 mg/dl (8.4-10.2); Carbon Dioxide 28 mmol/L (22-30); Chloride 102 mmol/L (98-107); Estimated Creatinine Clearance 90 ml/min; Glucose 85 mg/dl (70-99); Potassium 4.3 mmol/L (3.5-5.1); Sodium 136 mmol/L (135-145); Total Protein 7.8 g/dl (6.3-8.2); eGFR > 60.00
[2025-01-24] VITALS (9 sets, daily range): BP systolic 127–163; BP diastolic 78–99; BMI 41.5
[2025-01-24] MEDS: CELEBREX 200 MG PO (12:32)
[2025-01-24] MEDS: TYLENOL 1000 MG PO (12:32)
[2025-01-24] MEDS: NORMOSOL-R/PLASMALYTE-A 1000 IV (12:55)
[2025-01-24] MEDS: DILAUDID 0.5 MG IV ×2 (14:21→14:38)
[2025-01-24] MEDS: ROXICODONE 5 MG PO (15:56)
== END 2025-01-24 16:16 | disposition home or self-care (01) ==
LOC: SDS 06:15
PROVIDERS: ATTENDING PHYSICIAN Specialist; FAMILY PHYSICIAN Family Medicine
DX: M77.12 Lateral epicondylitis, left elbow (principal)
CPT/HCPCS: 24357; 36415; 80053